=== PATIENT | female | born 1950 | race Caucasian/White ===

== ENCOUNTER 2018-05-11 19:05 | Emergency (ER) | payer OTHER ==
[~2018-05-11] VITALS: Ht 154.9 cm; Wt 49.9 kg
[~2018-05-11 19:05] MED LIST: ATENOLOL25 MG; HYDROCHLOROTH12.5 M1; MICARDIS80 MG; SINGULAIR 10MG10 MG; SYNTHROID88 MCG; ZETIA10 MG
[2018-05-11] MEDS ORDERED: METOPROLOL SUCC25 MG (19:23)
== END 2018-05-12 09:05 | disposition home or self-care (01) ==
LOC: ER 19:05
DX: I95.89 Other hypotension (principal); S82.51XA Displaced fracture of medial malleolus of right tibia, initial encounter for closed fracture; S90.02XA Contusion of left ankle, initial encounter; S70.02XA Contusion of left hip, initial encounter; M25.571 Pain in right ankle and joints of right foot; G71.09 Other specified muscular dystrophies; W01.198A Fall on same level from slipping, tripping and stumbling with subsequent striking against other object, initial encounter; Y93.01 Activity, walking, marching and hiking; Y92.018 Other place in single-family (private) house as the place of occurrence of the external cause; Y99.8 Other external cause status

== ENCOUNTER 2018-05-27 06:00 | Outpatient (CLI) | payer OTHER ==
[~2018-05-27 06:00] MED LIST changes: +METOPROLOL SUCC25 MG
[2018-05-27] MEDS ORDERED: SYNTHROID75 MCG PO (10:33)
[2018-05-27] MEDS ORDERED: SYNTHROID50 MCG PO (10:34)
== END 2018-05-27 06:05 | disposition home or self-care (01) ==
LOC: RAD 06:00 → LAB 06:00 → CIR.AMB 05-28 09:19 → EDSTATUS 05-28 18:15
DX: Z01.810 Encounter for preprocedural cardiovascular examination (principal); Z01.812 Encounter for preprocedural laboratory examination

== ENCOUNTER 2018-05-27 14:02 | Inpatient (IN) | payer OTHER ==
[~2018-05-27] VITALS: Ht 160 cm; Wt 40.8 kg
[~2018-05-27 14:02] MED LIST changes: +SYNTHROID50 MCG PO; +SYNTHROID75 MCG PO
--- NOTE | 2018-05-27 14:19 | NUR ---
PTE REFIER QUE LA CAMPIS LA ENVIA PARA CONSUELO DE EMERGENCIA POR EL POTASIO BAJO
[2018-05-30] MEDS ORDERED: CIPROFLOXACIN750 MG PO (15:52)
[2018-05-30] MEDS ORDERED: LOPRESSOR25 MG PO ×2 (15:52→15:53)
[2018-05-30] MEDS ORDERED: OXYC1TAB9 PO (15:53)
[2018-05-30] MEDS ORDERED: MONTELUKAST SOD10 MG PO (15:53)
[2018-05-30] MEDS ORDERED: METOPROLOL TART50 MG PO (15:53)
[2018-05-30] MEDS ORDERED: LEVOTHYROXINE112 MCG PO (15:54)
[2018-05-30] MEDS ORDERED: POM (MEDICAMENTO EN PO (15:54)
== END 2018-05-30 19:17 | disposition home or self-care (01) | DRG 493 ==
LOC: ER 14:02 → SURH 16:40 → SEC-K 16:40 → SURH 17:24
PROVIDERS: Orthopaedic Surgery; ADMIT Internal Medicine
PROC: 4A12X4Z Monitoring of Cardiac Electrical Activity, External Approach (ICD-10-PCS; 2018-05-27)
PROC: 0T9B70Z Drainage of Bladder with Drainage Device, Via Natural or Artificial Opening (ICD-10-PCS; 2018-05-27)
PROC: 0MQQ0ZZ Repair Right Ankle Bursa and Ligament, Open Approach (ICD-10-PCS; 2018-05-28)
PROC: 0QSG04Z Reposition Right Tibia with Internal Fixation Device, Open Approach (ICD-10-PCS; principal; 2018-05-28 19:00)
DX: S82.851A Displaced trimalleolar fracture of right lower leg, initial encounter for closed fracture (principal); E87.1 Hypo-osmolality and hyponatremia; S93.04XA Dislocation of right ankle joint, initial encounter; S93.421A Sprain of deltoid ligament of right ankle, initial encounter; S93.491A Sprain of other ligament of right ankle, initial encounter; S90.01XA Contusion of right ankle, initial encounter; E03.9 Hypothyroidism, unspecified; F44.89 Other dissociative and conversion disorders; F41.8 Other specified anxiety disorders; M81.0 Age-related osteoporosis without current pathological fracture

== ENCOUNTER 2021-12-27 19:05 | Inpatient (IN) | payer OTHER ==
[~2021-12-27] VITALS: Ht 162.6 cm; Wt 40.8 kg
[~2021-12-27 19:05] MED LIST changes: +CIPROFLOXACIN750 MG PO; +LEVOTHYROXINE112 MCG PO; +LOPRESSOR25 MG PO; +METOPROLOL TART50 MG PO; +MONTELUKAST SOD10 MG PO; +OXYC1TAB9 PO; +POM (MEDICAMENTO EN PO
[2021-12-28] MEDS ORDERED: AZELASTIN-FLUTI23 GM (08:12)
[2021-12-28] MEDS ORDERED: MONTELUKAST SOD10 MG (08:12)
[2021-12-28] MEDS ORDERED: SYNTHROID75 MCG (08:13)
== END 2022-01-18 01:58 | disposition expired | DRG 208 ==
LOC: ER 19:05 → MEDJ 23:17 → O/R 01-09 14:43 → MEDJ 01-09 14:57
PROVIDERS: ADMIT Internal Medicine; ATTEND Internal Medicine
PROC: BB24ZZZ Computerized Tomography (CT Scan) of Bilateral Lungs (ICD-10-PCS; 2021-12-27)
PROC: 8E0ZXY6 Isolation (ICD-10-PCS; 2021-12-28)
PROC: 4A12X4Z Monitoring of Cardiac Electrical Activity, External Approach (ICD-10-PCS; 2021-12-28)
PROC: 0DH67UZ Insertion of Feeding Device into Stomach, Via Natural or Artificial Opening (ICD-10-PCS; 2021-12-28)
PROC: 3E0G76Z Introduction of Nutritional Substance into Upper GI, Via Natural or Artificial Opening (ICD-10-PCS; 2021-12-28)
PROC: 02HV33Z Insertion of Infusion Device into Superior Vena Cava, Percutaneous Approach (ICD-10-PCS; 2022-01-02)
PROC: B54MZZZ Ultrasonography of Right Upper Extremity Veins (ICD-10-PCS; 2022-01-06)
PROC: 5A1945Z Respiratory Ventilation, 24-96 Consecutive Hours (ICD-10-PCS; principal; 2022-01-17)
PROC: 0BH17EZ Insertion of Endotracheal Airway into Trachea, Via Natural or Artificial Opening (ICD-10-PCS; 2022-01-17)
DX: J69.0 Pneumonitis due to inhalation of food and vomit (principal); U07.1 COVID-19; J15.7 Pneumonia due to Mycoplasma pneumoniae; A41.9 Sepsis, unspecified organism; E46 Unspecified protein-calorie malnutrition; Z68.1 Body mass index [BMI] 19.9 or less, adult; E87.0 Hyperosmolality and hypernatremia; E87.1 Hypo-osmolality and hyponatremia; I82.621 Acute embolism and thrombosis of deep veins of right upper extremity; I46.8 Cardiac arrest due to other underlying condition; R09.02 Hypoxemia; E87.6 Hypokalemia; E03.9 Hypothyroidism, unspecified; I10 Essential (primary) hypertension; G71.00 Muscular dystrophy, unspecified; Z74.01 Bed confinement status; R53.81 Other malaise; R13.19 Other dysphagia; D53.0 Protein deficiency anemia; D63.8 Anemia in other chronic diseases classified elsewhere